=== PATIENT | male | born 1940 | race Caucasian/White ===

== ENCOUNTER → 2018-09-10 | Outpatient (CLI) | payer OTHER | LOC: FIMAGING 13:58 | PROVIDERS: ATTEND Orthopaedic Surgery | DX: M17.12 Unilateral primary osteoarthritis, left knee (principal) ==

== ENCOUNTER 2018-09-25 08:56 | Inpatient (IN) | payer OTHER ==
--- NOTE | 2018-09-25 06:17 | PDHPUP ---
History & Physical Update H&P update statement: This history and physical update is based on an assessment of the patient which was completed after admission or registration (within 24 hours), but prior to the surgery/procedure. H&P update: H&P reviewed & patient examined, no change in patient's condition since H&P completed
[~2018-09-25 08:56] MED LIST: ROPIVACAINE 0.2% 80 MG, EPINEPHrine 0.2 MG, KETOROLAC TROMETHAMINE 30 MG in SYRINGE 0 ML IU ONE; TRANEXAMIC ACID 3,000 MG in NS (SYRINGE) 50 ML IRR ONE; TRANEXAMIC ACID 3,000 MG/50 ML BAG IRR ONE
[2018-09-25] MEDS ORDERED: DEXAMETHASONE 4 MG/ML VIAL IVP ONE (09:07)
[2018-09-25] MEDS ORDERED: ACETAMINOPHEN 325 MG TAB PO ONE (09:07)
[2018-09-25] MEDS ORDERED: ceFAZolin 2 GM/DEXTROSE 100 ML IV ONE (09:07)
[2018-09-25] MEDS ORDERED: FAMOTIDINE 20 MG TAB PO ONE (09:07)
[2018-09-25] MEDS ORDERED: LR 1,000 ML IV ONE (09:09)
[2018-09-25] MEDS ORDERED: ACETAMINOPHEN 325 MG TAB ONE (09:14)
[2018-09-25] MEDS ORDERED: FAMOTIDINE 20 MG TAB ONE (09:14)
[2018-09-25] MEDS ORDERED: CEFAZOLIN 2 GM/DEXTROSE/100 ML BAG IV ONE (09:14)
[2018-09-25] MEDS ORDERED: DEXAMETHASONE 4 MG/ML VIAL ONE (09:14)
[2018-09-25] MEDS ORDERED: LIDOCAINE 2% 100 MG/5 ML SYR ONE (09:48)
[2018-09-25] MEDS ORDERED: ROPIVACAINE HCL 100 MG/20 ML INJ ONE (09:48)
[2018-09-25] MEDS ORDERED: PROPOFOL/EMULSION 500 MG/50 ML BOTTLE IV ONE ×2 (09:49)
[2018-09-25] MEDS ORDERED: PROPOFOL 200 MG/20 ML VIAL ONE (09:49)
[2018-09-25] MEDS ORDERED: BUPIVACAINE/DEXTROSE 7.5MG/ML 2 ML SPINAL AMP SP ONE (09:49)
[2018-09-25] MEDS ORDERED: HYDROmorphONE/DILAUDID 2 MG/ML INJ IVP PRN (10:03)
[2018-09-25] MEDS ORDERED: ONDANSETRON 4 MG/2 ML VIAL IVP PRN ×2 (10:03→12:29)
[2018-09-25] MEDS ORDERED: MIDAZOLAM 2 MG/2 ML VIAL IVP ONE (10:03)
[2018-09-25] MEDS ORDERED: MEPERIDINE 25 MG/0.5 ML AMP IVP PRN (10:03)
[2018-09-25] MEDS ORDERED: LR 500 ML IV PRN (10:03)
[2018-09-25] MEDS ORDERED: oxyCODONE IR 5 MG TAB PO PRN ×2 (10:03→12:29)
[2018-09-25] MEDS ORDERED: METOCLOPRAMIDE 10 MG/2 ML VIAL IVP PRN ×2 (10:03→12:29)
[2018-09-25] MEDS ORDERED: NALOXONE HCL 0.4 MG/ML INJ IVP PRN (10:03)
[2018-09-25] MEDS ORDERED: PROMETHAZINE HCL 25 MG/ML INJ IVP PRN ×2 (10:03→12:29)
[2018-09-25] MEDS ORDERED: fentaNYL 100 MCG/2 ML INJ IVP PRN (10:03)
[2018-09-25] MEDS ORDERED: PHENYLEPHRINE HCL 100 MCG/ML SYR IVP PRN (10:03)
--- NOTE | 2018-09-25 10:53 | PDANEPAE ---
ANE Past Medical History - Cardiovascular History Hx Hypertension: Yes Hx Arrhythmias: No Hx Chest Pain: No Hx Coronary Artery / Peripheral Vascular Disease: No Hx CHF / Valvular Disease: No Hx Palpitations: No - Pulmonary History Hx COPD: No Hx Asthma/Reactive Airway Disease: No Hx Recent Upper Respiratory Infection: No Hx Oxygen in Use at Home: No Hx Sleep Apnea: No Sleep Apnea Screening Result - Last Documented: Positive - Neurologic History Hx Cerebrovascular Accident: No Hx Seizures: No Hx Dementia: No - Endocrine History Hx Diabetes: No - Renal History Hx Renal Disorders: No - Liver History Hx Hepatic Disorders: No - Neurological & Psychiatric Hx Hx Neurological and Psychiatric Disorders: No - Cancer History Hx Cancer: Yes Cancer History Comment: skin CA - Congenital Disorder History Hx Congenital Disorders: No - GI History Hx Gastrointestinal Disorders: No - Other Health History Other Health History: dental implants - Chronic Pain History Chronic Pain: No - Surgical History Prior Surgeries: scar tissue repair on face 1yr ago ANE Review of Systems Review of Systems: - Exercise capacity METS (RN): 6 METS ANE Patient History - Allergies Allergies/Adverse Reactions: No Known Allergies Allergy (Verified 09/03/18 12:44) - Home Medications Home Medications: Atorvastatin Calcium [Lipitor 20 mg (*)] 20 mg PO DAILY 08/28/18 [Last Taken ] Cholecalciferol (Vitamin D3) [Vitamin D3] 5,000 unit PO HS 08/28/18 [Last Taken 09/04/18] Colesevelam HCl [Welchol (*)] 1,875 mg PO BID 08/28/18 [Last Taken 09/18/18] Ezetimibe [Zetia 10 MG (*)] 10 mg PO DAILY 08/28/18 [Last Taken 09/11/18] Herbals/Supplements -Info Only 1 ea PO DAILY 08/28/18 [Last Taken 09/11/18] Indapamide [Indapamide 2.5 mg (*)] 2.5 mg PO DAILY 08/28/18 [Last Taken 09/11/18 ] Lisinopril [Zestril 20 mg (*)] 20 mg PO HS 08/28/18 [Last Taken 09/11/18] Nebivolol HCl [Bystolic] 10 mg PO HS 08/28/18 [Last Taken 09/11/18] Vitamin E 400 unit PO HS 08/28/18 [Last Taken 09/04/18] Aspirin [Aspirin 81mg (*)] 81 mg PO DAILY 09/03/18 [Last Taken 09/04/18] Glucosamine/Chondroitin [Glucosamine/Chondroitin (*)] 1 each PO DAILY 09/03/18 [ Last Taken 09/11/18] - NPO status NPO Since - Liquids (Date): 09/25/18 NPO Since - Liquids (Time): 06:00 NPO Since - Solids (Date): 09/24/18 NPO Since - Solids (Time): 09:00 - Smoking Hx Smoking Status: Former smoker - Family Anes Hx Family Hx Anesthesia Complications: none ANE Labs/Vital Signs - Vital Signs Blood Pressure: 179/78 Heart Rate: 61 Respiratory Rate: 22 O2 Sat (%): 95 Height: 182.88 cm Weight: 87.09 kg ANE Physical Exam - Airway Neck exam: FROM Mallampati Score: Class 3 Mouth exam: normal dental/mouth exam - Pulmonary Pulmonary: no respiratory distress, no rales or rhonchi, clear to auscultation - Cardiovascular Cardiovascular: regular rate and rhythym, no murmur, rub, or gallop - ASA Status ASA Status: II ANE Anesthesia Plan Anesthesia Plan: spinal Regional Anesthesia: single shot NB
--- NOTE | 2018-09-25 10:53 | POSTANESTH ---
Post Anesthetic Evaluation Cardiovascular Status: Normal, Stable Respiratory Status: Normal, Stable Level of Consciousness/Mental Status: Can Participate in Eval Pain Control: Adequate, Prn Tx Ordered Nausea/Vomiting Control: Adequate, Prn Tx Ordered Complications Possibly Related to Anesthesia: None Noted
[2018-09-25] MEDS ORDERED: ePHEDrine SULFATE 25 MG/5 ML SYR ONE (11:40)
[2018-09-25] MEDS ORDERED: PHENYLEPHRINE HCL 100 MCG/ML SYR ONE (12:03)
[2018-09-25] MEDS ORDERED: POLYETHYLENE GLYCOL 3350 17 GM PKT PO PRN (12:29)
[2018-09-25] MEDS ORDERED: TEMAZEPAM 15 MG CAP PO PRN (12:29)
[2018-09-25] MEDS ORDERED: PROMETHAZINE HCL 25 MG SUPPR PR PRN (12:29)
[2018-09-25] MEDS ORDERED: ONDANSETRON DISINTEGRATING 4 MG TAB PO PRN (12:29)
[2018-09-25] MEDS ORDERED: LACTULOSE 20 GM/30 ML UDCUP PO PRN (12:29)
[2018-09-25] MEDS ORDERED: BISACODYL 10 MG SUPP PR PRN (12:29)
[2018-09-25] MEDS ORDERED: CYCLOBENZAPRINE 10 MG TAB PO PRN (12:29)
[2018-09-25] MEDS ORDERED: DIPHENOXYLATE/ATROPINE LOMOTIL 1 TAB PO PRN (12:29)
[2018-09-25] MEDS ORDERED: diphenhydrAMINE 25 MG CAP PO PRN (12:29)
[2018-09-25] MEDS ORDERED: MAGNESIUM HYDROXIDE 30 ML UDCUP PO PRN (12:29)
--- NOTE | 2018-09-25 12:29 | POSTOPPROG ---
Post Op Note Date of Operation: 09/25/18 Surgeon: Karlos Davis Machine Assembler Supervisor: Angeles Davis and Aura Boyd PA-C Anesthesiologist: Dr. Michael Anesthesia: Spinal, Other (Specify) (adductor canal block) Pre-op Diagnosis: left knee OA Post-op Diagnosis: same Indication: left knee pain Procedure: left TKA, robot assisted Findings: severe OA of left knee Inf/Abcess present in the surg proc area at time of surgery?: No EBL: Minimal
[2018-09-25] MEDS ORDERED: LR 1,000 ML IV SCH (12:30)
[2018-09-25] MEDS ORDERED: ceFAZolin 2 GM/DEXTROSE 100 ML IV SCH (14:00)
[2018-09-25] MEDS: COLESEVELAM HCL 625 MG TAB PO SCH (17:58)
[2018-09-25] MEDS: ACETAMINOPHEN 325 MG TAB PO SCH (17:58)
[2018-09-25] MEDS: ceFAZolin 2 GM/DEXTROSE 100 ML IV SCH (20:14)
[2018-09-25] MEDS: FAMOTIDINE 20 MG TAB PO SCH (20:28)
[2018-09-25] MEDS: SENNOSIDES/DOCUSATE SODIUM TAB PO SCH (20:29)
[2018-09-25] MEDS: ASPIRIN 81 MG CHEWABLE TAB PO SCH (20:31)
[2018-09-25] MEDS ORDERED: CHOLECALCIFEROL VIT D3 2,000 UNITS TAB/CAP PO SCH (21:00)
[2018-09-25] MEDS ORDERED: NEBIVOLOL HCL 5 MG TAB PO SCH (21:00)
[2018-09-25] MEDS ORDERED: LISINOPRIL 20 MG TAB PO SCH (21:00)
--- NOTE | 2018-09-25 23:16 | PDMN ---
Medical Necessity Medical necessity: Pt meets IP criteria as of 09/25/2018 per PA; est los > 2 mn for post op care and management of chronic conditions including advanced age COPD, prostate CA and heart disease s/p TKA.
[2018-09-26] MEDS: ACETAMINOPHEN 325 MG TAB PO SCH ×3 (00:18→11:31)
[2018-09-26] MEDS: ceFAZolin 2 GM/DEXTROSE 100 ML IV SCH (03:26)
[2018-09-26 07:48] VITALS: BP 135/70
[2018-09-26] MEDS ORDERED: EZETIMIBE 10 MG TAB PO SCH (09:00)
[2018-09-26] MEDS ORDERED: INDAPAMIDE 2.5 MG TAB PO SCH (09:00)
[2018-09-26] MEDS ORDERED: ATORVASTATIN CALCIUM 20 MG TAB PO SCH (09:00)
[2018-09-26] MEDS: COLESEVELAM HCL 625 MG TAB PO SCH (09:18)
[2018-09-26] MEDS: FAMOTIDINE 20 MG TAB PO SCH (09:21)
[2018-09-26] MEDS: ASPIRIN 81 MG CHEWABLE TAB PO SCH (09:22)
[2018-09-26] MEDS: SENNOSIDES/DOCUSATE SODIUM TAB PO SCH (09:22)
--- NOTE | 2018-09-26 09:56 | ASMTLACE ---
LACE Length of stay for Answers: 2 days current admission Acuity / Level of Answers: Yes Care: Did the patient have an inpatient admission? Comorbidities - select Answers: Other Notes: HTN all that apply # of Emergency department Answers: 0 visits in the last 6 months Score: 6 Date Signed: 09/26/2018 09:56 AM Electronically Signed By:CHRIS Cuenca
--- NOTE | 2018-09-26 10:52 | SOAPPROG ---
SOAP Progress Note Assessment/Plan: Assessment: Patient is doing well POD 1 s/p L TKA Pain management: pain is well controlled on oral pain meds. VTE ppx: recommend aspirin 81 mg BID for 4 weeks, cont HUE and SCDs D/c planning: Patient has done better than anticipated and would like to be discharged to home today. Patient must be released from PT before discharge to home. Plan: 09/26/18 10:51 09/26/18 10:52 Subjective: patient is doing well, denies pain, denies SOB and N/V Objective: Vital Signs Temp Pulse Resp BP Pulse Ox 36.4 C 61 16 135/70 H 94 09/26/18 07:45 09/26/18 07:45 09/26/18 07:45 09/26/18 07:45 09/26/18 07:45 Laboratory Results 09/26/18 05:20 09/25/18 09/26/18 09/27/18 05:59 05:59 05:59 Intake Total 2626 Output Total 1520 525 Balance 1106 -525 LLE: incision dressing is clean and dry, NVI, +pf/df ICD10 Worksheet Patient Problems: Problems Problem Status Onset Primary localized osteoarthritis of left knee Acute
--- NOTE | 2018-09-26 18:22 | GOP ---
[f rep st] OPERATIVE REPORT DATE OF OPERATION: 09/25/2018 SURGEON: Patience Davis MD LABOR AND DELIVERY NURSE: IBRAHIMA Jaimes ANESTHESIA: Spinal. PREOPERATIVE DIAGNOSIS: Left knee osteoarthritis. POSTOPERATIVE DIAGNOSIS: Left knee osteoarthritis. NAME OF PROCEDURE Left knee total knee arthroplasty with computer navigation, robotic assist. PROCEDURE PERFORMED: FINDINGS: ESTIMATED BLOOD LOSS: 30 cc. INDICATIONS: The patient is a 78-year-old male with severe and progressive pain and deformity of the left knee unresponsive to conservative care. The risks and benefits of surgical intervention were explained in detail. DESCRIPTION OF PROCEDURE: The patient was brought to the operative room and placed on the table in the supine position. Spinal anesthesia was induced without difficulty. A pneumatic tourniquet was applied about the left proximal thigh, and the leg was prepped and draped in a sterile fashion. The leg tam was applied. After exsanguination by elevation the tourniquet was inflated to 250 mmHg. Incision was made anterior medial from the tibial tuberosity to a point 2 cm proximal to the superior pole of the patella. Medial parapatellar arthrotomy was carried out from the superior pole of the patella and posteriorly in line with the fibers of the Type II VMO. The medial collateral ligament was elevated and the infrapatellar fat pad was resected. The patella was everted and the articular surface was excised. A 35 mm patellar button was placed. Attention was turned first to the distal aspect of the femur. After exposure of the femur, 2 half pins were placed for fixation of the femoral array. In a similar fashion, 2 pins were placed anteromedial on the tibia for fixation of the tibial array. External land marking and registration of the hip center was performed without difficulty. Internal femoral and tibial registration was carried out without difficulty and the femoral and tibial checkpoints were placed and verified for accuracy. Attention was turned to the femur. The foot print for the size 5 femoral component was cut with the saw using the [employer] robotic system and verified for accuracy against the CT based plan. In a similar fashion, the saw was used to cut the footprint for the size 6 tibial component using the [employer] system and verified for accuracy against the CT based plan. The tibial articular surface was excised without difficulty, followed by the intercondylar box cut. The knee was extended and the remnants of the medial and lateral meniscus were excised. The posterior capsule was injected with ropivacaine, epinephrine and Toradol. A size 6 tibial tray was positioned. Trial reduction was then carried out. There was excellent range of motion, alignment, and stability using the 6 x 9 mm polyethylene. All trials were then removed. The joint was thoroughly irrigated and carefully dried. The Press-Fit components were implanted. The permanent 6 x 9 mm polyethylene was placed without difficulty. The tourniquet was deflated and all bleeders were coagulated. The wound was thoroughly irrigated and closed using interrupted sutures of 2-0 Vicryl for the joint capsule. The subcu was closed with 3-0 Vicryl and the skin with 4-0 Monocryl. Dermabond and Steri-Strips were applied followed by a compressive dressing. The patient was then moved from the operating room to the recovery room in good condition, having tolerated the procedure well. PATHOLOGY: Severe tricompartmental osteoarthritis. /[id number]/MODL MTDD
== END 2018-09-26 12:00 | disposition home or self-care (01) | DRG 470 ==
LOC: F3N 08:56
PROVIDERS: ADMIT Orthopaedic Surgery; ATTEND Orthopaedic Surgery
DX: M17.12 Unilateral primary osteoarthritis, left knee (principal); I10 Essential (primary) hypertension; E78.00 Pure hypercholesterolemia, unspecified
CPT/HCPCS: 97110-GP; 97116-GP; 97161-GP; J0171; J0690; J1100; J1885; J2001; J2250; J2370; J2704; J2795